=== PATIENT | male | born 1955 | race Caucasian/White ===

== ENCOUNTER 2020-08-29 | Outpatient (REF) | payer OTHER, SELFPAY ==
[2020-08-30 11:55] LABS: Glucose Urine UA NEG (NEG); Leukocyte Esterase Urine NEG (NEG); Nitrite Urine NEG (NEG); PH 5.5 (5.0-8.0); Specific Gravity - Urine >= 1.030 (1.005-1.025); Urine Blood NEG (NEG); Urine Ketones NEG (NEG); Urine Protein NEG (NEG-TRACE)
[2020-08-30 12:02] LABS: Appearance Urine CLEAR; Color Urine YELLOW
== END 2020-08-29 00:01 | disposition home or self-care (01) ==
LOC: HO.WFDLNP
PROVIDERS: Visit Provider Family Medicine
DX: R10.9 Unspecified abdominal pain (principal); Z87.442 Personal history of urinary calculi
CPT/HCPCS: 81003

== ENCOUNTER 2020-08-30 11:28 | Outpatient (REF) | payer OTHER, SELFPAY ==
--- NOTE | ~2020-08-30 | US_ITS ---
EXAMINATION: US RETROPERITONEAL LIMITED (RENAL ONLY) CLINICAL INFORMATION: History of renal calculi. Left flank pain. COMPARISON: None TECHNIQUE: Real-time imaging of the kidneys. FINDINGS: RIGHT KIDNEY: 12.3 x 7.6 x 8.5 cm (SAG x AP x TRV). The kidney is normal in size, contour, and echogenicity. Renal cortical thickness is normal. There is a 3 mm echogenic, shadowing right lower pole calculus. Multiple anechoic spaces are seen in the right kidney. It is difficult to distinguish between parapelvic cysts and hydronephrosis. The right renal pelvis does appear dilated but there are definitely some cysts as well. LEFT KIDNEY: 14.0 x 7.9 x 8.9 cm (SAG x AP x TRV). The kidney is normal in size, contour, and echogenicity. Renal cortical thickness is normal. 3 mm and 8 mm left lower pole calculi. There are multiple anechoic spaces in the left kidney likely a combination of parapelvic cysts and hydronephrosis. US/US renal BI IMPRESSION: There are bilateral renal calculi the largest 8mm in the left lower pole. There are anechoic spaces seen in the kidneys bilaterally, likely a combination of parapelvic cysts and hydronephrosis. Consider CT scan for further evaluation.
== END 2020-08-30 11:29 | disposition home or self-care (01) ==
LOC: HO.HMGCX 11:28
PROVIDERS: PCP Family Medicine; Visit Provider Family Medicine
DX: R10.9 Unspecified abdominal pain (principal)
CPT/HCPCS: 76775